=== PATIENT | male | born 1995 | race American Indian/Alaskan Native ===

== ENCOUNTER 2019-06-27 11:42 | Emergency (ER) | payer SELFPAY ==
[2019-06-27 12:23] VITALS: BP 135/89
--- NOTE | 2019-06-27 12:25 | Emergency Department Report ---
Chief Complaint: Sore Throat Stated Complaint: CHEST PAIN/COUGH/LEG PAIN/SPINE Time Seen by Provider: 06/27/19 12:21 - HPI History of Present Illness: Brain is a 23 yo male with hx of asthma and tobacco abuse who presents with cough. Desires albuterol MDI refill. - Exam Vital Signs: Vital Signs 06/27/19 12:20 Temperature 97.6 F Pulse Rate 74 Respiratory 20 Rate Blood Pressure 135/89 O2 Sat by Pulse 98 Oximetry Physical Exam: Well appearing NAD lungs: CTA B HEENT: NCAT clear sclera no tonsillar edema exudates Steady normal gait no work of breathing MSE screening note: Focused history and physical exam performed. Due to findings the following was ordered: ED Medical Decision Making - Medical Decision Making MSE performed and completed. Referred to outpatient medicine physician. ED Disposition for MSE Clinical Impression: Encounter for medical screening examination Disposition: MED SCREENING EXAM-LEFT Condition: Stable Referrals: GREGORIO MERCER MD [Staff Physician] - 3-5 Days Forms: Work/School Release Form(ED)
== END 2019-06-27 12:45 | disposition left against medical advice (07) ==
LOC: ED 11:42
DX: R05 Cough (principal)
CPT/HCPCS: 99281